=== PATIENT | female | born 1995 | race Caucasian/White ===

== ENCOUNTER 2023-12-11 15:47 | Emergency (ER) | payer BC, SELFPAY ==
[2023-12-11 15:49] VITALS: BP 124/83
[2023-12-11 16:03] LABS: % Basophils 0.4 % (0-2); % Eosinophils 0.4 % (0-6); % Immature Granulocytes 0.2 % (0-0.5); % Lymphocytes 13.6 % (20.5-51.1); % Neutrophils 73.4 % (42.2-75.2); Absolute Lymphocytes 0.7 10^3/uL (1.2-3.4); Absolute Monocytes 0.6 10^3/uL (0.1-0.6); Absolute Neutrophils 3.6 10^3/uL (1.4-6.5); Hematocrit 32.6 % (37.0-47.0); Hemoglobin 11.4 g/dL (12.0-16.0); Mean Corpuscular Hgb 30.2 pg (27.0-31.0); Mean Corpuscular Volume 86.5 fL (81.0-99.0); Mean Platelet Volume 11.4 fL (7.4-10.4); Nucleated Red Blood Cells % 0 %; Platelet Count 224 10^3/uL (130-400); Red Blood Cell Count 3.77 10^6/uL (4.20-5.40); Red Cell Dist. Width 13.8 % (11.5-14.5); White Blood Cell Count 4.9 10^3/uL (4.8-10.8)
[2023-12-11 16:20] LABS: HCG, Serum Qualitative Screen Negative
[2023-12-11 16:36] LABS: ALT (SGPT) 14 U/L (0-35); AST (SGOT) 23 U/L (14-36); Albumin 4.9 g/dl (3.5-5.0); Alkaline Phosphatase 95 U/L (38-126); Blood Urea Nitrogen 8 mg/dl (7-17); Calcium 9.6 mg/dl (8.4-10.2); Carbon Dioxide 21 mmol/L (22-30); Chloride 107 mmol/L (98-107); Glucose 101 mg/dl (70-99); Sodium 137 mmol/L (135-145); Total Bilirubin 0.7 mg/dl (0.2-1.3); eGFR > 60.00
[2023-12-11 17:36] VITALS: BMI 21.8
[2023-12-11 17:42] VITALS: BP 118/83
[2023-12-11 19:28] LABS: Monotest Negative (Negative)
[2023-12-11 19:32] VITALS: BP 118/84
[2023-12-11] MEDS: NSS 1000 IV (19:43)
[2023-12-11] MEDS: PROTONIX IV 40 MG IV (19:44)
[2023-12-11] MEDS: ATIVAN 1 MG IV (19:44)
[2023-12-11] MEDS: TORADOL 15 MG IV (19:45)
[2023-12-11 20:11] LABS: TSH Reflex To Free T4 2.96 uIU/ml (0.47-4.68)
--- NOTE | 2023-12-11 21:21 | ED.GENMED ---
History of Present Illness
General
Chief Complaint: Anxiety
Source: patient
Exam Limitations: none
Time Seen by Provider: 12/11/23 17:15
Nursing documentation reviewed up to this point in time: agreed with
Travel History
Have you had any contact with someone who has COVID-19?: No
Do you have any symptoms of coronavirus? Fever > 100 degrees, chills, cough, shortness of breath, sore throat, loss of taste or smell, muscle aches, or headache?: No
History of Present Illness
History of Present Illness:
Patient with history of anxiety, presents to ED secondary to increased anxiety secondary to situations at home and at work, along with 3-day history of sore throat, shortness of breath, and decreased appetite. Patient states that she has not been
able to get any restful sleep recently. Denies suicidal or homicidal ideation. Denies use of any illicit medication, but does admit to using recreational marijuana to control her anxiety. Denies chest pain. Denies nausea, vomiting, or diarrhea.
Denies headache. Denies fever. Patient has taken COVID test at home, which was negative. Denies sick contact. Denie recent travel.
Past History
Past History
ED Past Medical History: None
ED Past Surgical History: None
Review of Systems
Review of Systems
Allergies reviewed?: Yes
All Other Systems: ROS reviewed and negative except as documented in HPI and ROS
Constitutional: Reports no symptoms; Denies fever
EENT: Reports sore throat
Respiratory: Reports trouble breathing; Denies cough
Cardiac: Reports no symptoms; Denies chest pain
ABD/GI: Reports no symptoms
: Reports no symptoms
Musculoskeletal: Reports no symptoms
Skin: Reports no symptoms
Neurological: Reports weakness
Psychiatric: Reports anxiety
Phy Exam
Physical Exam
Physical Exam:
Physical Exam
General: mild distress, not acutely ill. afebrile
Head: nc/at. eomi
Neck: supple. no meningeal signs.
Heart: s1/s2 regular rate and rhythm, no murmur. equal radial pulses.
Lungs: no acute respiratory distress. clear bilaterally
Abdomen: normal bowel sounds. not tender.
Neuro: alert and oriented x 3. no focal neurological deficits
Skin: no rash
Psychiatric: well kept. interactive and cooperative. anxious appearing
Extremities: no edema. no calf tenderness.
Course
Orders/Labs/Results
Orders:
Orders
12/11/23 15:55
Test Result ONCE
12/11/23 15:57
CMP [Comprehensive Metabolic Panel] Urgent
Complete Blood Count/With Diff Urgent
Magnesium Urgent
Monotest Urgent
Comment: ADD ON
, Serum Qualitative Screen [HCG, Serum Qualitative Screen] Urgent
TSH Reflex To Free T4 Urgent
Comment: ADD ON
12/11/23 18:51
Add On- LAB Urgent
Tests Added?: magnesium, TSH to reflex Free T4, monotest
12/11/23 18:52
0.9% Sodium Chloride 1000 ml [Nss] 1,000 ml IV BOLUS
12/11/23 18:53
Ketorolac [Toradol] 15 mg IV NOW STA
Lorazepam [Ativan] 1 mg IV NOW STA
Pantoprazole [Protonix IV] 40 mg IV NOW STA
12/11/23 21:07
COVID-19 Antigen Urgent
Source: Nasal Swab
12/11/23 21:22
Crisis Consult Urgent
Reason for Consult: depression
12/11/23 21:50
Urine Drug Abuse Screen Urgent
Date Specimen was Collected: 12/11/23
Time Specimen was Collected: 21:48
Rapid Strep Group A Urgent
SVETLANA Source: Throat/Pharynx
Specimen Description:
Date Specimen was Collected: 12/11/23
Time Specimen was Collected: 21:48
Abnormal Lab Results
12/11/23 12/11/23
15:57 21:50
RBC 3.77 L 10^6/uL
(4.20-5.40)
Hgb 11.4 L g/dL
(12.0-16.0)
Hct 32.6 L %
(37.0-47.0)
MPV 11.4 H fL
(7.4-10.4)
Absolute Lymphs (auto) 0.7 L 10^3/uL
(1.2-3.4)
Lymphocytes % 13.6 L %
(20.5-51.1)
Monocytes % 12.0 H %
(1.7-9.3)
Carbon Dioxide 21 L mmol/L
(22-30)
Creatinine 0.5 L mg/dL
(0.6-1.0)
Glucose 101 H mg/dl
(70-99)
U Marijuana (THC) Screen Positive H
(Negative)
12/11/23 15:57
12/11/23 15:57
Vital Signs
Initial and Last Documented VS:
Initial Vital Signs
Temp Pulse Resp BP Pulse Ox
98.4 F 92 18 124/83 100
12/11/23 15:49 12/11/23 15:49 12/11/23 15:49 12/11/23 15:49 12/11/23 15:49
Last Documented Vital Signs
Temp Pulse Resp BP Pulse Ox
98.7 F 75 20 114/79 100
12/11/23 19:32 12/11/23 21:56 12/11/23 21:56 12/11/23 21:56 12/11/23 21:56
MDM/Problems Addressed
MDM/Problems Addressed:
Upon further discussion, concern with sig. depression with past suicidal thoughts discussed. As such, agrees to speak with [facility] crisis.
Pt evaluated in ED by broom worker - outpatient resources provided for the patient.
Pt with an unremarkable workup in ED. Patient's presentation today, likely multifactorial, including increased stress level at home attributed to both at home and at work, along with likely nonspecific viral illness, which has resulted in poor oral
intake.
Patient will be discharged home in stable condition, to the care of her father.
*Critical Care Note
Total Time (30-74mins, 75-104mins- exclusive of procedures): Not Applicable
ED Attending Note
-
Portions of this chart may have been created with voice recognition software.� Occasional wrong word or��sound alike� substitutions may have occurred due to the inherent limitations of voice recognition software.
Discharge Plan
Departure
Patient Disposition: Home (Routine Discharge)
Date of Disposition: 12/11/23
Time of Disposition: 22:14
Patient with high blood pressure during this ER visit?: Yes
Condition: Good
Discharge Problem:
Viral illness, Anxiety
Instructions: Anxiety, Adult (DC), Viral Syndrome (DC)
Prescriptions:
No Action
fluoxetine
20 mg PO DAILY
Referrals:
Jonn Pryor MD [Family Provider] -
Stand Alone Forms: Return to Work
Activity Restrictions/Additional Instructions:
As discussed, please follow-up with your primary care physician, as well as provided outpatient resources, for continual evaluation and treatment.
Interventions
Interventions:
*Risk Screen - Suicide Last Done: 12/11/23 17:37
*General Assessment Last Done: 12/11/23 17:37
*Neglect/Abuse Screening Last Done: 12/11/23 17:37
ED- Fall Risk Assessment Last Done: 12/11/23 19:32
*ED COVID-19 Vaccine History Last Done: 12/11/23 17:40
ED-Psychological Assessment Last Done: 12/11/23 19:32
Discharge Date and Time
Print Language: LITHUANIAN
[2023-12-11 21:27] LABS: COVID-19 Antigen Negative (Negative)
[2023-12-11 21:56] VITALS: BP 114/79
[2023-12-11 22:14] LABS: Amphetamines Negative (Negative); Barbiturates Negative (Negative); Benzodiazepines Negative (Negative); Buprenorphine Negative (Negative); Cocaine Negative (Negative); Marijuana Positive (Negative); Methadone Negative (Negative); Methamphetamines Negative (Negative); Opiates Negative (Negative); Phencyclidine Negative (Negative); Tricyclic Antidepressants Negative (Negative)
== END 2023-12-11 22:48 | disposition home or self-care (01) ==
LOC: EMR 15:47
PROVIDERS: EMERGENCY PHYSICIAN Emergency Medicine; FAMILY PHYSICIAN Family Medicine
DX: B34.9 Viral infection, unspecified (principal); R53.1 Weakness; J02.9 Acute pharyngitis, unspecified; R06.02 Shortness of breath; F41.9 Anxiety disorder, unspecified; R03.0 Elevated blood-pressure reading, without diagnosis of hypertension; F32.A Depression, unspecified; F12.90 Cannabis use, unspecified, uncomplicated
CPT/HCPCS: 99284; 96374; 96375 ×2; 96361 ×2; 80053; 80306; 83735; 84443; 84703; 85025; 86308; 87070; 87811; 87880

== ENCOUNTER 2023-12-13 05:58 | Emergency (ER) | payer BC, SELFPAY ==
[2023-12-13 06:00] VITALS: BP 117/82
[2023-12-13 06:04] VITALS: BP 117/82
--- NOTE | 2023-12-13 06:18 | ED.GENMED ---
History of Present Illness
General
Chief Complaint: Crisis Evaluation
Source: patient and family
Exam Limitations: none
Time Seen by Provider: 12/13/23 06:01
Nursing documentation reviewed up to this point in time: agreed with
Travel History
Have you had any contact with someone who has COVID-19?: No
Do you have any symptoms of coronavirus? Fever > 100 degrees, chills, cough, shortness of breath, sore throat, loss of taste or smell, muscle aches, or headache?: No
History of Present Illness
History of Present Illness:
28 yo female presents to the emergency department after father called EMS. He states he has been having trouble sleeping, and last night she went upstairs and her brother was trying to get her to go to bed, but she was just sitting in a chair. She
is not speaking or giving much history. She is following commands. Occasionally she answers questions.
Past History
Past History
ED Past Medical History: Psychiatric (Anxiety)
ED Past Surgical History: Other (Diaphragmatic hernia repair)
Social History
Tobacco: Non-smoker
Alcohol: None
Drug: Marijuana
Personal: Other (Boyfriend)
Living: with roommate (Boyfriend)
Review of Systems
Review of Systems
Allergies reviewed?: Yes
All Other Systems: Not applicable
Constitutional: Reports sleep disturbance
EENT: Reports no symptoms
Respiratory: Reports no symptoms
Cardiac: Reports no symptoms
ABD/GI: Reports no symptoms
: Reports no symptoms
Musculoskeletal: Reports no symptoms
Skin: Reports no symptoms
Neurological: Reports no symptoms
Endocrine: Reports no symptoms
Hematologic/Lymphatic: Reports no symptoms
Psychiatric: Reports no symptoms
Phy Exam
Physical Exam
Physical Exam:
Physical Exam
General: no apparent distress, not acutely ill
Neck: supple. no meningeal signs. normal posterior pharynx
Heart: s1/s2 regular rate and rhythm, no murmur. equal radial
pulses.
HEENT: Pupils equal round reactive to light, EOMI
Lungs: no acute respiratory distress. clear bilaterally
Abdomen: normal bowel sounds. not tender. no CVAT
Neuro: alert and oriented. no focal neurological deficits cranial nerves II through XII intact
Skin: no rash
Psychiatric: well kept. Cooperative, but not answering many questions
Extremities: no edema. no calf tenderness. negative homans. good distal pulses
Course
Orders/Labs/Results
Orders:
Orders
12/13/23 06:14
IV Insert/Care/Rem.- Treatment PRN
0.9% Sodium Chloride 1000 ml [Nss] 1,000 ml IV BOLUS
12/13/23 06:16
Electrocardiogram (*1) Urgent
Reason for Study: Other
Other Reason for Exam: altered mental status
EKG- Treatment ONCE
12/13/23 06:21
Acetaminophen Urgent
Alcohol Urgent
Complete Blood Count/With Diff Urgent
Comprehensive Metabolic Panel Urgent
Salicylate Urgent
Urine Drug Abuse Screen Urgent
Date Specimen was Collected: 12/13/23
Time Specimen was Collected: 06:19
12/13/23 06:23
Test Result ONCE
12/13/23 07:44
Beta Hcg Urine Qualitative Screen [HCG, Urine Qualitative Screen] Urgent
Date Specimen was Collected: 12/13/23
Time Specimen was Collected: 07:43
Urinalysis Reflex To Culture Urgent
Date Specimen was Collected: 12/13/23
Time Specimen was Collected: 07:43
12/13/23 08:53
Crisis Consult Urgent
Reason for Consult: anxiety/depression
Abnormal Lab Results
12/13/23 12/13/23
06:21 07:44
WBC 3.8 L 10^3/uL
(4.8-10.8)
RBC 3.63 L 10^6/uL
(4.20-5.40)
Hgb 10.9 L g/dL
(12.0-16.0)
Hct 31.3 L %
(37.0-47.0)
MPV 11.5 H fL
(7.4-10.4)
Absolute Lymphs (auto) 0.8 L 10^3/uL
(1.2-3.4)
BUN 6 L mg/dl
(7-17)
Glucose 103 H mg/dl
(70-99)
Urine Ketones 1+ A
(Negative)
Salicylates < 1.0 L mg/dl
(2.0-20.0)
Acetaminophen < 10 L ug/ml
(10-30)
U Marijuana (THC) Screen Positive H
(Negative)
12/13/23 06:21
12/13/23 06:21
Vital Signs
Initial and Last Documented VS:
Initial Vital Signs
Temp Pulse Resp BP Pulse Ox
98.0 F 61 12 117/82 100
12/13/23 06:00 12/13/23 06:00 12/13/23 06:00 12/13/23 06:00 12/13/23 06:00
Last Documented Vital Signs
Temp Pulse Resp BP Pulse Ox
98.0 F 62 15 114/74 98
12/13/23 06:00 12/13/23 13:18 12/13/23 13:18 12/13/23 13:18 12/13/23 13:18
MDM/Problems Addressed
Differential Diagnosis Includes:
depression, viral syndrome
MDM/Problems Addressed:
28-year-old female with anxiety and depression, no SI, no signs of meningitis.
Chronic conditions affecting care: Psychiatric illness (Anxiety)
Acute Exacerbation and/or Progression of Chronic Illness: Psychiatric illness (Anxiety)
*Pulse Oximetry
Patient hypoxic: no
*EKG
Interpreted by ED Provider?: Yes
EKG Intrepretation Date: 12/13/23
EKG Intrepretation Time: 06:34
Interpretation: abnormal
Comparison EKG: no comparison EKG present
Heart Rate: 49
Rate: bradycardiac
Rhythm: sinus
[place]: normal axis
Interval: normal interval
QRS Pattern: normal QRS
Ischemia: no ischemia
*Circular [place] Interpretation
Rate: bradycardiac
Interpretation: abnormal
Heart Rate: 50
Rhythm: sinus
*Critical Care Note
Total Time (30-74mins, 75-104mins- exclusive of procedures): Not Applicable
Patient Management
Social determinants of health affecting care: Living situation and Strong social support
Escalation/DeEscalation of care consider admission/obs:
admit not indicated
ED Attending Note
-
Portions of this chart may have been created with voice recognition software.� Occasional wrong word or��sound alike� substitutions may have occurred due to the inherent limitations of voice recognition software.
Discharge Plan
Departure
Patient Disposition: Home (Routine Discharge)
Date of Disposition: 12/13/23
Time of Disposition: 12:20
Patient with high blood pressure during this ER visit?: No
Condition: Good
Discharge Problem:
Anxiety and depression
Instructions: Depression, Adult (DC), Anxiety, Adult (DC)
Prescriptions:
No Action
fluoxetine
20 mg PO DAILY
Referrals:
UNKNOWN - PT DOES,NOT KNOW [Family Provider] -
Nancy Davis MD [Active] - Call in 1-3 days for appt
Interventions
Interventions:
*Risk Screen - Suicide Last Done: 12/13/23 13:00
*General Assessment Last Done: 12/13/23 06:00
*Neglect/Abuse Screening Last Done: 12/13/23 06:00
ED- Fall Risk Assessment Last Done: 12/13/23 07:58
*ED COVID-19 Vaccine History Last Done: 12/13/23 06:00
*Nursing Disposition Last Done: 12/13/23 13:18
ED-Psychological Assessment Last Done: 12/13/23 09:23
Discharge Date and Time
Discharge Date/Time: 12/13/23 13:19
Print Language: CROATIAN
[2023-12-13 06:36] LABS: % Basophils 0.8 % (0-2); % Eosinophils 2.1 % (0-6); % Immature Granulocytes 0.3 % (0-0.5); % Lymphocytes 21.9 % (20.5-51.1); % Monocytes 6.5 % (1.7-9.3); % Neutrophils 68.4 % (42.2-75.2); Absolute Eosinophils 0.1 10^3/uL (0-0.7); Absolute Lymphocytes 0.8 10^3/uL (1.2-3.4); Absolute Monocytes 0.3 10^3/uL (0.1-0.6); Absolute Neutrophils 2.6 10^3/uL (1.4-6.5); Hematocrit 31.3 % (37.0-47.0); Hemoglobin 10.9 g/dL (12.0-16.0); Mean Corp Hgb Conc. 34.8 g/dL (33.0-37.0); Mean Corpuscular Volume 86.2 fL (81.0-99.0); Mean Platelet Volume 11.5 fL (7.4-10.4); Nucleated Red Blood Cells % 0 %; Platelet Count 222 10^3/uL (130-400); Red Blood Cell Count 3.63 10^6/uL (4.20-5.40); Red Cell Dist. Width 13.2 % (11.5-14.5); White Blood Cell Count 3.8 10^3/uL (4.8-10.8)
[2023-12-13 06:46] LABS: Amphetamines Negative (Negative); Barbiturates Negative (Negative); Benzodiazepines Negative (Negative); Buprenorphine Negative (Negative); Cocaine Negative (Negative); Marijuana Positive (Negative); Methadone Negative (Negative); Methamphetamines Negative (Negative); Opiates Negative (Negative); Phencyclidine Negative (Negative); Tricyclic Antidepressants Negative (Negative)
[2023-12-13 06:50] LABS: ALT (SGPT) 12 U/L (0-35); AST (SGOT) 20 U/L (14-36); Acetaminophen < 10 ug/ml (10-30); Albumin 4.3 g/dl (3.5-5.0); Alkaline Phosphatase 86 U/L (38-126); Blood Urea Nitrogen 6 mg/dl (7-17); Calcium 9.2 mg/dl (8.4-10.2); Carbon Dioxide 22 mmol/L (22-30); Chloride 106 mmol/L (98-107); Glucose 103 mg/dl (70-99); Potassium 3.7 mmol/L (3.5-5.1); Salicylate < 1.0 mg/dl (2.0-20.0); Sodium 136 mmol/L (135-145); Total Bilirubin 0.7 mg/dl (0.2-1.3); Total Protein 7.3 g/dl (6.3-8.2); eGFR > 60.00
[2023-12-13 06:54] LABS: Alcohol None Detected
[2023-12-13] MEDS: NSS 1000 IV (07:28)
[2023-12-13 07:30] VITALS: BP 112/77
[2023-12-13 07:52] LABS: HCG, Urine Qualitative Screen Negative
[2023-12-13 07:53] LABS: Urine Albumin Negative (Neg - Trace); Urine Bilirubin Negative (Negative); Urine Character Clear (Clear); Urine Color Yellow; Urine Glucose Negative (Negative); Urine Ketone 1+ (Negative); Urine Leukocyte Negative (Negative); Urine Nitrite Negative (Negative); Urine Occult Blood Negative (Negative); Urine Urobilinogen Negative (Neg - 1+)
[2023-12-13 10:58] VITALS: BP 114/74
[2023-12-13 13:18] VITALS: BP 114/74
== END 2023-12-13 13:19 | disposition home or self-care (01) ==
LOC: EMR 05:58
PROVIDERS: EMERGENCY PHYSICIAN Emergency Medicine
DX: F32.A Depression, unspecified (principal); F41.9 Anxiety disorder, unspecified; G47.9 Sleep disorder, unspecified
CPT/HCPCS: 99284; 96360; 80053; 80143; 80179; 80306; 81003; 81025; 82077; 85025; 93005

== ENCOUNTER 2023-12-14 12:44 | Emergency (ER) | payer BC, SELFPAY ==
[2023-12-14 13:23] VITALS: BMI 20.4
[2023-12-14 13:25] VITALS: BP 132/84
[2023-12-14 15:16] LABS: Amphetamines Negative (Negative); Barbiturates Negative (Negative); Benzodiazepines Negative (Negative); Buprenorphine Negative (Negative); Cocaine Negative (Negative); Marijuana Positive (Negative); Methadone Negative (Negative); Methamphetamines Negative (Negative); Opiates Negative (Negative); Phencyclidine Negative (Negative); Tricyclic Antidepressants Negative (Negative)
--- NOTE | 2023-12-14 16:44 | W.PN.UPDATE ---
Update Note
Progress Note Update
Pt seen and reviewed with Crisis staff. Pt alert, oriented, sitting up in stretcher. Pt becomes tearful upon approach, appears regressed, expresses fear she is being arrested. Pt repeatedly stating 'no one is telling me anything.' Pt c/o feeling
some 'brain fog', confusion, mood somewhat 'up and down.' No agitation, no aggressive behavior, no signs of hallucinations. Speech/thought coherent/clear with paranoid content. No signs of martin or significant depression. Pt was seen in ED twice
in the past few days. Pt was assessed by Crisis and given referral information for local outpatient dual diagnosis treatment. UDS positive for THC. Pt reportedly stated she has used other substances at times, such as Ecstacy or LSD. Pt reportedly
has not been sleeping. 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 States she was out sick last week, had dental work.
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 Pt does not appear to need inpatient treatment
Rec: consider overnight observation with a sleep med; otherwise would again refer to Outpatient or Intensive Outpatient dual dx treatment- Crisis staff to review referral info with pt and family
--- NOTE | 2023-12-14 20:07 | ED.GENMED ---
History of Present Illness
General
Chief Complaint: Crisis Evaluation
Source: patient and family
Exam Limitations: clinical condition
Time Seen by Provider: 12/14/23 13:22
Travel History
Have you had any contact with someone who has COVID-19?: Unable to Answer
Do you have any symptoms of coronavirus? Fever > 100 degrees, chills, cough, shortness of breath, sore throat, loss of taste or smell, muscle aches, or headache?: Unable to Answer
History of Present Illness
History of Present Illness:
28-year-old female presents with the patient's brother who called EMS who was concerned about her behavior. She has been seen 2 other recent times apparently has been feeling anxious. Patient since has not been able to sleep because she is worried
that family was going to do something to her. She has been perseverating over the fact that she has done drugs sometime ago at a festival and was worried she was going to be incarcerated. Patient states that she did mildly sometime ago. She has
not done it recently. She did smoke marijuana in the past as well. Brother was concerned because she continues to be paranoid and is not sleeping at home. She typically lives with her boyfriend [place] but has been home. She has not been
suicidal. The patient keeps repeating that she is going to skilled nursing. She keeps also admitting that she is in skilled nursing but she is redirected that she is in the emergency department. Denies any suicidal ideation.
Past History
Past History
ED Past Medical History: Psychiatric (Anxiety)
ED Past Surgical History: Other (Diaphragmatic hernia repair)
Social History
Tobacco: Non-smoker
Alcohol: None
Drug: Marijuana
Personal: Other (Boyfriend)
Living: with roommate (Boyfriend)
Phy Exam
Physical Exam
Physical Exam:
CONSTITUTIONAL Vital signs reviewed, Patient alert and oriented to person, place and time. Well-appearing
HEAD atraumatic, normocephalic.
EYES eyelids normal to inspection, Extraocular muscles intact, Conjunctiva normal, Sclera normal.
NECK normal range of motion, Trachea midline, no jugular venous distention.
RESP no respiratory distress
BACK No obvious deformities
UPPER EXTREMITY Gross Range of motion normal, gross motor strength normal
LOWER EXTREMITY Gross range of motion normal, Gross motor strength normal
NEURO Speech normal, No focal motor deficits include, [place] coma scale 15, Memory normal, Cranial Nerves intact to screening exam.
SKIN Skin warm, dry, and normal in color.
PSYCHIATRIC Patient oriented to person place and time, Normal affect.
Course
Orders/Labs/Results
Orders:
Orders
12/14/23 14:30
PSYCHIATRY CONSULT Routine
Consulting Provider: Sumeet Moss
Was physician already notified: Yes
Crisis Consult Routine
Reason for Consult: paranoid
12/14/23 14:46
Urine Drug Abuse Screen Urgent
Date Specimen was Collected: 12/14/23
Time Specimen was Collected: 14:42
Abnormal Lab Results
12/14/23
14:46
U Marijuana (THC) Screen Positive H
(Negative)
Vital Signs
Initial and Last Documented VS:
Initial Vital Signs
Temp Pulse Resp BP Pulse Ox
97.5 F 68 18 132/84 98
12/14/23 13:25 12/14/23 13:25 12/14/23 13:25 12/14/23 13:25 12/14/23 13:25
Last Documented Vital Signs
Temp Pulse Resp BP Pulse Ox
97.5 F 68 18 132/84 98
12/14/23 13:25 12/14/23 13:25 12/14/23 13:25 12/14/23 13:25 12/14/23 13:25
MDM/Problems Addressed
MDM/Problems Addressed:
Paranoia, substance abuse, anxiety
*Pulse Oximetry
Patient hypoxic: no
*Critical Care Note
Total Time (30-74mins, 75-104mins- exclusive of procedures): Not Applicable
Data Reviewed
Source: patient and family
Prescriptions/Medications Considered But Not Given:
Consider benzodiazepines but do not think it is a good long-term plan.
Patient Management
Discussion with other providers: Exercise Physiologist Certified (Case discussed with Dr. Bell who evaluated the patient. He agrees there is no obvious reason for involuntary commitment. Patient is somewhat stable. He does recommend trial of seroquel)
ED Attending Note
-
Portions of this chart may have been created with voice recognition software.� Occasional wrong word or��sound alike� substitutions may have occurred due to the inherent limitations of voice recognition software.
Discharge Plan
Departure
Prescriptions:
No Action
fluoxetine
20 mg PO DAILY
Referrals:
UNKNOWN - PT NOT,INTERVIEWE [Family Provider] -
Interventions
Interventions:
*Risk Screen - Suicide Last Done: 12/14/23 13:04
*General Assessment Last Done: 12/14/23 13:30
*Neglect/Abuse Screening Last Done: 12/14/23 13:04
ED- Fall Risk Assessment Last Done: 12/14/23 13:24
*ED COVID-19 Vaccine History Last Done: 12/14/23 13:30
ED-Psychological Assessment Last Done: 12/14/23 13:24
Discharge Date and Time
Print Language: CITIZEN OF [place]
[2023-12-14] MEDS: SEROQUEL PO ×2 (21:49→22:08)
[2023-12-15] MEDS: SEROQUEL 25 MG PO (02:31)
[2023-12-15 09:15] VITALS: BP 129/68
--- NOTE | 2023-12-15 10:00 | ED.CRISIS ---
ED Crisis Note
ED Crisis Note
Subjective:
No new issues
Assessment/Plan:
Pt has been accepted at psych facility
== END 2023-12-15 09:30 ==
LOC: EMR 12:44
PROVIDERS: CONSULT PHYSICIAN Psychiatry & Neurology Psychiatry; EMERGENCY PHYSICIAN Emergency Medicine
DX: F22 Delusional disorders (principal)
CPT/HCPCS: 99285; 80306